=== PATIENT | male | born 1960 | race Caucasian/White ===

== ENCOUNTER 2017-07-19 15:31 | Day surgery (SDC) | payer OTHER ==
[2017-07-19] MEDS ORDERED: PROPOFOL 20 ML ×2 (16:31)
[2017-07-19] MEDS ORDERED: PROPOFOL 40 ML (16:32)
== END 2017-07-19 18:40 | disposition home or self-care (01) ==
LOC: GIL 15:31
DX: Z12.11 Encounter for screening for malignant neoplasm of colon (principal); D12.5 Benign neoplasm of sigmoid colon; K57.90 Diverticulosis of intestine, part unspecified, without perforation or abscess without bleeding; K64.8 Other hemorrhoids; E11.9 Type 2 diabetes mellitus without complications; I10 Essential (primary) hypertension
CPT/HCPCS: 45380; 88305